=== PATIENT | male | born 2000 ===

== ENCOUNTER 2020-03-12 08:26 | Emergency (ER) | payer OTHER ==
--- NOTE | 2020-03-12 08:48 | EDM.PDOC ---
<Malena Emery - Last Filed: 03/12/20 08:46> ED HPI GENERAL MEDICAL PROBLEM - General Chief Complaint: Laceration Stated Complaint: left hand/finger lacerations Time Seen by Provider: 03/12/20 08:30 Source of Information: Reports: Patient History Limitations: Reports: No Limitations - History of Present Illness INITIAL COMMENTS - FREE TEXT/NARRATIVE: Patient presents with multiple lacerations left hand/fingers due to chain saw. No deformity or obvious loss of tendon function. Tetanus should have been updated around age 12. No other injuries reported. Patient's care will be assumed by . - Related Data Allergies Allergy/AdvReac Type Severity Reaction Status Date / Time amoxicillin Allergy Hives Verified 03/12/20 08:27 Home Meds: Home Meds . [No Known Home Meds] 03/12/20 [History] Departure - Departure Disposition: Home, Self-Care 01 Clinical Impression: Laceration - Discharge Information Instructions: Laceration Care, Adult, [id number], Sutures, [place], or Adhesive Wound Closure, [id number] Referrals: PCP,None [Primary Care Provider] - Forms: ED Department Discharge, ED Return to Work/School Form Additional Instructions: 1. Follow up with your regular provider in 10-14 days for suture removal as directed. Bring these discharge instructions with you to that visit. 2. Tylenol 650 mg by mouth every 4 hours and/or OTC ibuprofen 2-3 tabs by mouth every 6 hours with food as directed./needed. You may stagger these medications for 48-72 hours only, which essentially means that you are receiving a pain medication about every 2 hours. 3. Antibacterial soap wash/soak with subsequent antibacterial dressing such as Neosporin, etc. as directed 2 times per day until the wound or laceration site completely heals. Keep the area clean and dry with activity restrictions as discussed. Never use hydrogen peroxide for wound care. 4. Work excuse- See Form 5. Immediately after this visit verify that your cellular telephone's voicemail has been activated and is empty. Also verify that your home telephone's answering machine is operating properly and has space to receive messages. Note that it is sometimes necessary for us to be able to contact you at a later date to discuss your medical care. 6. Please remember that we are ALWAYS here for you and want to answer any questions you may have. Feel free to call the hospital any time and we call you back MARYELLEN. <Rivera Joiner - Last Filed: 03/12/20 11:33> ED HPI GENERAL MEDICAL PROBLEM - General Source of Information: Reports: Patient. Denies: Old Records (No [facility] records available) History Limitations: Reports: No Limitations - History of Present Illness INITIAL COMMENTS - FREE TEXT/NARRATIVE: I assumed patient's care at 09:00 hours with patient stable prior to my arrival, and Dr. Emery is in the facility at this time. 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 His last tetanus booster was 7 years ago with the patient not injuring this hand in the past. No recent history of abdominal pain, heartburn, nausea, diarrhea, melena, gross hematochezia, or any food intolerance, including fatty foods, etc.. The patient also denies any recent fever, cough, wheezing, dyspnea, etc.. Onset: Today, Sudden Onset Date: 03/12/20 Onset Time: 08:00 Duration: Constant Location: Reports: Upper Extremity, Left. Denies: Head, Face, Neck, Chest, Abdomen, Back, Pelvis, Upper Extremity, Right, Lower Extremity, Left, Lower Extremity, Right, Radiates to Quality: Reports: Same as Previous Episode, Throbbing Severity: Mild Improves with: Reports: None Worsens with: Reports: None Context: Reports: Trauma (As above) Associated Symptoms: Denies: Confusion, Chest Pain, Cough, Diaphoresis, Fever/Chills, Headaches, Loss of Appetite, Nausea/Vomiting, Shortness of Breath, Syncope, Weakness Treatments CHIEF ENGINEER: Reports: Other (see below) (None) Left Hand Pain Score (Numeric/FACES): 1 Past Medical History - Past Health History Medical/Surgical History: Denies Medical/Surgical History Social & Family History - Tobacco Use Smoking Status *Q: Former Smoker Tobacco Use Within Last Twelve Months: No Years of Tobacco use: 2 Packs/Tins Daily: 2 Packs/Tins Daily Comment: Smoked between ages 14 and 16. Used Tobacco, but Quit: Yes Smoking Cessation Information Provided To Patient: No - Living Situation & Occupation Occupation: Employed ([employer] [employer]) ED ROS GENERAL - Review of Systems Review Of Systems: Comprehensive ROS is negative, except as noted in HPI. ED EXAM, GENERAL - Physical Exam Exam: See Below Exam Limited By: No Limitations General Appearance: Alert, WD/WN, No Apparent Distress Head: Atraumatic, Normocephalic Neck: Normal Inspection, Supple, Non-Tender, Full Range of Motion. No: Lymphadenopathy (L), Lymphadenopathy (R), Thyromegaly Respiratory/Chest: No Respiratory Distress, Lungs Clear, Normal Breath Sounds, No Accessory Muscle Use, Chest Non-Tender Cardiovascular: Normal Peripheral Pulses, Regular Rate, Rhythm, No Edema, No Gallop, No JVD, No Murmur, No Rub. No: Gallop/S3, Gallop/S4, Friction Rub Peripheral Pulses: 2+: Radial (L), Radial (R) GI/Abdominal: Normal Bowel Sounds, Soft, Non-Tender, No Organomegaly, No Distention, No Abnormal Bruit, No Mass, Pelvis Stable (Male) Exam: Deferred Rectal (Males) Exam: Deferred Back Exam: Normal Inspection, Full Range of Motion. No: CVA Tenderness (L), CVA Tenderness (R), Muscle Spasm Extremities: Normal Range of Motion, No Pedal Edema, Arm Pain (Mild palpation pain at laceration sites), Other (Multiple lacerations on the majority of his fingers and palmar surfaces of the hand with required surgical repairs as above. No direct evidence of foreign body or joint, nerve, or significant vascular involvement. No evidence of crepitation, deformity, fracture, etc. Additional multiple superficial lacerations not requiring repair although superficial skin debridement was performed.). No: Non-Tender (As below), Judd's Sign, Increased Warmth Neurological: Alert, Oriented, CN II-XII Intact, Normal Cognition, Normal Gait, No Motor/Sensory Deficits Psychiatric: Normal Affect, Normal Mood Skin Exam: Wound/Incision (As above) Lymphatic: No Adenopathy ED GENERAL MEDICAL PROCEDURES - Laceration/Wound Repair Left Proximal Ventral Digit - 1st (Thumb) Lac/wound length in cm: 2 Appearance: Subcutaneous, Mildly Contaminated Distal NVT: Neuro & Vascular Intact, No Tendon Injury Anesthetic Type: Local Local Anesthesia - Lidocaine (Xylocaine): 1% Plain Local Anesthetic Volume: 3cc Skin Prep: Providone-Iodine (Betadine) Saline irrigation (cc's): 0 Exploration/Debridement/Repair: Wound Explored, In a Bloodless Field, Explored to Base, No Foreign Material Found, Wound Margins Revised, Multiple Flaps Aligned Closed with: Sutures Suture Size: 4-0 # of Sutures: 4 Suture Type: Nylon, Interrupted, Simple Drain Placement: No Sterile Dressing Applied: Nurse Tetanus Status Addressed: Yes Complications: No Left Proximal Ventral Digit - 2nd (Index) Lac/wound length in cm: 2 Appearance: Stellate, Irregular, Mildly Contaminated Distal NVT: Neuro & Vascular Intact, No Tendon Injury Anesthetic Type: Local Local Anesthesia - Lidocaine (Xylocaine): 1% Plain Local Anesthetic Volume: 3cc Skin Prep: Providone-Iodine (Betadine) Saline irrigation (cc's): 0 Exploration/Debridement/Repair: Wound Explored, In a Bloodless Field, Explored to Base, No Foreign Material Found, Wound Margins Revised, Multiple Flaps Aligned Closed with: Sutures Suture Size: 4-0 # of Sutures: 3 Suture Type: Nylon, Interrupted, Simple Drain Placement: No Sterile Dressing Applied: Nurse Tetanus Status Addressed: Yes Complications: No Left Distal Ventral Hand Lac/wound length in cm: 3 Appearance: Subcutaneous Distal NVT: Neuro & Vascular Intact, No Tendon Injury Anesthetic Type: Local Local Anesthesia - Lidocaine (Xylocaine): 1% Plain Local Anesthetic Volume: 4cc Skin Prep: Providone-Iodine (Betadine) Saline irrigation (cc's): 0 Exploration/Debridement/Repair: Wound Explored, In a Bloodless Field, Explored to Base, No Foreign Material Found, Wound Margins Revised, Multiple Flaps Aligned Closed with: Sutures Suture Size: 4-0 # of Sutures: 5 Suture Type: Nylon, Interrupted, Simple Drain Placement: No Sterile Dressing Applied: Nurse Tetanus Status Addressed: Yes Complications: No Progress/Comments: Laceration in the thenar region. Left Proximal Ventral Digit - 3rd (Middle) Lac/wound length in cm: 1 Appearance: Subcutaneous, Mildly Contaminated Distal NVT: Neuro & Vascular Intact, No Tendon Injury Anesthetic Type: Local Local Anesthesia - Lidocaine (Xylocaine): 1% Plain Local Anesthetic Volume: 2cc Skin Prep: Providone-Iodine (Betadine) Saline irrigation (cc's): 0 Exploration/Debridement/Repair: Wound Explored, In a Bloodless Field, Explored to Base, No Foreign Material Found, Wound Margins Revised, Multiple Flaps Aligned Closed with: Sutures Suture Size: 4-0 # of Sutures: 2 Suture Type: Nylon, Interrupted, Simple Drain Placement: No Sterile Dressing Applied: Nurse Tetanus Status Addressed: Yes Complications: No Right Distal Ventral Digit - 3rd (Middle) Lac/wound length in cm: 0.7 Appearance: Subcutaneous, Mildly Contaminated Distal NVT: Neuro & Vascular Intact, No Tendon Injury Anesthetic Type: Local Local Anesthesia - Lidocaine (Xylocaine): 1% Plain Local Anesthetic Volume: 1cc Skin Prep: Providone-Iodine (Betadine) Saline irrigation (cc's): 0 Exploration/Debridement/Repair: Wound Explored, In a Bloodless Field, Explored to Base, No Foreign Material Found, Wound Margins Revised, Multiple Flaps Aligned Closed with: Sutures Suture Size: 4-0 # of Sutures: 1 Suture Type: Nylon, Interrupted, Simple Drain Placement: No Sterile Dressing Applied: Nurse Tetanus Status Addressed: Yes Complications: No Left Distal Ventral Digit - 4th (Ring) Lac/wound length in cm: 2 Appearance: Subcutaneous, Stellate, Irregular Distal NVT: Neuro & Vascular Intact, No Tendon Injury Anesthetic Type: Local Local Anesthesia - Lidocaine (Xylocaine): 1% Plain Local Anesthetic Volume: 3cc Skin Prep: Providone-Iodine (Betadine) Saline irrigation (cc's): 0 Exploration/Debridement/Repair: Wound Explored, In a Bloodless Field, Explored to Base, No Foreign Material Found, Wound Margins Revised, Multiple Flaps Aligned Closed with: Sutures # of Sutures: 4 Suture Type: Nylon, Interrupted, Simple Drain Placement: No Sterile Dressing Applied: Nurse Tetanus Status Addressed: Yes Complications: No Left Middle Lateral Ventral Digit - 3rd (Middle) Lac/wound length in cm: 0.7 Appearance: Subcutaneous, Linear, Stellate, Irregular, Mildly Contaminated Distal NVT: Neuro & Vascular Intact, No Tendon Injury Anesthetic Type: Local Local Anesthesia - Lidocaine (Xylocaine): 1% Plain Local Anesthetic Volume: 1cc Skin Prep: Providone-Iodine (Betadine) Saline irrigation (cc's): 0 Exploration/Debridement/Repair: Wound Explored, In a Bloodless Field, Explored to Base, No Foreign Material Found, Wound Margins Revised, Multiple Flaps Aligned Closed with: Sutures Suture Size: 4-0 # of Sutures: 1 Suture Type: Nylon, Interrupted, Simple Drain Placement: No Sterile Dressing Applied: Nurse Tetanus Status Addressed: Yes Complications: No Course - Vital Signs Last Recorded V/S: Last Vital Signs Temp 36.4 C 03/12/20 08:27 Pulse 68 03/12/20 08:27 Resp 18 03/12/20 08:27 BP 137/63 03/12/20 08:27 Pulse Ox 97 03/12/20 08:27 Vital Signs - 24 hr 03/12/20 08:27 Temperature [ 36.4 C Temporal] Pulse, 68 Peripheral [ Right Pulse Oximetry] Respiratory 18 Rate Blood Pressure 137/63 [Right Upper Arm] O2 Sat by Pulse 97 Oximetry - Orders/Labs/Meds Orders: Active Orders 24 hr Category Date Time Status Vaccines to be Administered [RC] PER UNIT ROUTINE Care 03/12/20 09:10 Active Hand Comp Min 3V Lt [CR] Stat Exams 03/12/20 09:10 Taken Obtain Past Medical Record [OM.PC] Routine Oth 03/12/20 09:09 Active Labs: None Meds: Medications Discontinued Medications Generic Name Dose Route Start Last Admin Trade Name Mauro PRN Reason Stop Dose Admin Diphtheria/Tetanus/Acell Pertussis 0.5 ml 03/12/20 09:10 03/12/20 09:53 Adacel IM 03/12/20 09:11 0.5 ml .ONCE ONE Administration Lidocaine HCl 5 ml 03/12/20 09:09 03/12/20 09:51 Xylocaine-Mpf 1% INJECT 03/12/20 09:10 5 ml ONETIME ONE Administration Lidocaine HCl 5 ml 03/12/20 09:43 03/12/20 09:52 Xylocaine-Mpf 1% INJECT 03/12/20 09:44 5 ml ONETIME ONE Administration Lidocaine HCl Confirm 03/12/20 10:06 03/12/20 11:30 Xylocaine-Mpf 1% Administered 03/12/20 10:07 Not Given Dose 5 ml .ROUTE .STK-MED ONE Lidocaine HCl 5 ml 03/12/20 10:00 03/12/20 10:06 Xylocaine-Mpf 1% INJECT 03/12/20 10:01 5 ml ONETIME ONE Administration Neomycin/Polymyxin/Bacitracin 3 each 03/12/20 09:09 03/12/20 09:52 Triple Antibiotic Oint TOP 03/12/20 09:10 3 each ONETIME ONE Administration - Radiology Interpretation Free Text/Narrative:: X-rays of the left hand, complete, shows no evidence of foreign body, fracture, dislocation, etc. Multiple areas of soft tissue injuries noted including in the third PIP area. Departure - Departure Time of Disposition: 11:10 Condition: Good - Discharge Information *PRESCRIPTION DRUG MONITORING PROGRAM REVIEWED*: Not Applicable *COPY OF PRESCRIPTION DRUG MONITORING REPORT IN PATIENT GUERO: Not Applicable Sepsis Event Note (ED) - Focused Exam Vital Signs: Vital Signs Temp Pulse Resp BP Pulse Ox 03/12/20 08:27 36.4 C 68 18 137/63 97 - Problem List & Annotations (1) Laceration SNOMED Code(s): 722294362 Code(s): BLT3422 - Status: Acute Priority: High Current Visit: Yes Onset Date: 03/12/20 Annotation/Comment:: Multiple areas of superficial skin debridement required as above. Overall excellent results with laceration repair. TDAP given. Activity restrictions, wound care, etc. were discussed. Work excuse and Workmen's Compensation forms were completed. Symptomatic relief as per discharge instructions. Note extensive skin debridement both prior to and during lacerations repairs as above. Patient's hand was soaked in a Betadine solution for an extended period of time with subsequent additional this infection by me during the above repairs. - Problem List Review Problem List Initiated/Reviewed/Updated: Yes - My Orders Last 24 Hours: My Active Orders 03/12/20 09:09 Obtain Past Medical Record [OM.PC] Routine 03/12/20 09:10 Vaccines to be Administered [RC] PER UNIT ROUTINE Hand Comp Min 3V Lt [CR] Stat - Assessment/Plan Last 24 Hours: My Active Orders 03/12/20 09:09 Obtain Past Medical Record [OM.PC] Routine 03/12/20 09:10 Vaccines to be Administered [RC] PER UNIT ROUTINE Hand Comp Min 3V Lt [CR] Stat Assessment:: As above Plan: As above. Extensive precautions were given to the patient, who is in agreement with the treatment plan. See Patient Instructions for further treatment and plan.
[2020-03-12] MEDS ORDERED: Bacitracin/Neomycin/Polymyxin B Oint 0.9 GM U/D Packet TOP ONE (09:09)
[2020-03-12] MEDS ORDERED: Diphtheria,Pertussis(Acell),Tetanus Vaccine 0.5 ML SDV IM ONE (09:10)
== END 2020-03-12 11:10 | disposition home or self-care (01) ==
LOC: LL.ED 08:26
DX: S61.012A Laceration without foreign body of left thumb without damage to nail, initial encounter (principal); S61.211A Laceration without foreign body of left index finger without damage to nail, initial encounter; S61.412A Laceration without foreign body of left hand, initial encounter; S61.213A Laceration without foreign body of left middle finger without damage to nail, initial encounter; S61.215A Laceration without foreign body of left ring finger without damage to nail, initial encounter; S61.212A Laceration without foreign body of right middle finger without damage to nail, initial encounter; Z87.891 Personal history of nicotine dependence; Z23 Encounter for immunization; W31.2XXA Contact with powered woodworking and forming machines, initial encounter; Y92.89 Other specified places as the place of occurrence of the external cause; Y99.0 Civilian activity done for income or pay
CPT/HCPCS: 12004; 73130; 90471; 90715; 99283; J2001